=== PATIENT | male | born 1960 | race Caucasian/White ===

== ENCOUNTER 2016-03-07 08:36 | Outpatient (CLI) | payer OTHER | END 2016-03-07 08:37 | disposition home or self-care (01) | LOC: NC 08:36 | PROVIDERS: ATTEND Family Medicine | DX: E11.9 Type 2 diabetes mellitus without complications (principal); Z71.3 Dietary counseling and surveillance; E66.9 Obesity, unspecified; Z68.42 Body mass index [BMI] 45.0-49.9, adult ==